=== PATIENT | female | born 1960 | race Hispanic/Latino ===

== ENCOUNTER 2018-09-11 19:57 | Emergency (ER) | payer BC ==
[2018-09-11 20:04] VITALS: RESP 20; O2SAT 99
[2018-09-11] MEDS ORDERED: Morphine 4 MG/ML VIAL ONE (20:16)
[2018-09-11] MEDS ORDERED: Midazolam 2 MG/2 ML VIAL IV ONE (20:59)
[2018-09-11] MEDS ORDERED: Midazolam 2 MG/2 ML VIAL ONE (21:02)
--- NOTE | 2018-09-11 22:45 | ED PDOC ---
Upper Extremity Pain/Injury Time Seen by Provider: 09/11/18 19:58 Chief Complaint (Nursing): Upper Extremity Problem/Injury Chief Complaint (Provider): Upper Extremity Problem/Injury History Per: Patient History/Exam Limitations: no limitations Additional Complaint(s): Charity Page is 57 year old female with a past medical history of anemia, who presents to the emergency department after sustaining an injury to the left wrist. Patient states she fell backwards and landed on her left wrist. She reports to have pain to the wrist with deformity but no other injury. PMD: No provider Past Medical History Reviewed: Historical Data, Nursing Documentation, Vital Signs Vital Signs: Last Vital Signs Temp 97.5 F L 09/11/18 20:01 Pulse 59 L 09/11/18 20:01 Resp 20 09/11/18 20:01 BP 132/72 09/11/18 20:01 Pulse Ox 99 09/11/18 20:01 - Medical History PMH: Anemia Denies: Chronic Kidney Disease - Surgical History Surgical History: No Surg Hx - Family History Family History: States: Unknown Family Hx - Home Medications Home Medications: Ambulatory Orders Medication Instructions Recorded Hydrocodone/Acetaminophen [Vicodin 1 each PO Q8 #15 tablet 09/11/18 Es 7.5-300 mg Tablet] RX: Ibuprofen [Motrin Tab] 600 mg PO Q6 #30 tab 09/11/18 - Allergies Allergies/Adverse Reactions: Allergies Allergy/AdvReac Type Severity Reaction Status Date / Time No Known Allergies Allergy Verified 06/24/15 11:33 Review of Systems ROS Statement: Except As Marked, All Systems Reviewed And Found Negative Musculoskeletal: Positive for: Other (wrist pain) Physical Exam - Reviewed Nursing Documentation Reviewed: Yes Vital Signs Reviewed: Yes - Physical Exam Appears: Positive for: Non-toxic, No Acute Distress Head Exam: Positive for: ATRAUMATIC, NORMOCEPHALIC Skin: Positive for: Normal Color Cardiovascular/Chest: Positive for: Regular Rate, Rhythm. Negative for: Murmur Respiratory: Positive for: Normal Breath Sounds. Negative for: Respiratory Distress Pulses-Radial (L): 2+ Pulses-Radial (R): 2+ Extremity: Positive for: Deformity (obvious deformity of the left distal radius), Other (able to wiggle fingers). Negative for: Tenderness (to elbow, forearm or shoulder (-) abnormaity) - ECG O2 Sat by Pulse Oximetry: 99 (RA) Pulse Ox Interpretation: Normal Medical Decision Making Medical Decision Making: Time: 20:16 A/P: Impression: distal radius fracture; neurovascular is intact Plan: --Morphine 4mg IVP --Versed inj 6mg IV --Left wrist x-ray See procedure note --Dr. Ruiz reviewed images, recommend outpatient followup --Patient placed in sugar tong splint, checked by me --Remained neurovascularly intact --Very well appearing upon discharge Scribe Attestation: Documented by Yogesh Cruz, acting as a scribe for Fam Arthur MD. Provider Scribe Attestation: All medical record entries made by the Scribe were at my direction and personally dictated by me. I have reviewed the chart and agree that the record accurately reflects my personal performance of the history, physical exam, medical decision making, and the department course for this patient. I have also personally directed, reviewed, and agree with the discharge instructions and disposition Procedures - Joint Reduction Conscious Sedation: No Reduction Attempts: 1 Pre-Procedure NV Exam: Yes Post Joint Reduction Film: joint reduced Progress: Joint reduction of L distal radius --Patient placed on monitor, IV, O2 established --Time out done --Versed 6mg IV given --Adequate relaxation achieved --Patient placed in finger binders --Weights applied gently --Traction and reduction x 2 --Successful anatomical alignment post reduction --Post-reduction xrays reveal better alignment Disposition - Clinical Impression Clinical Impression: Fracture of wrist - Patient ED Disposition Is Patient to be Admitted: No - Disposition Referrals: Amanuel Roche MD [Staff Provider] - Disposition: Routine/Home Disposition Time: 23:00 Condition: GOOD Prescriptions: Hydrocodone/Acetaminophen [Vicodin Es 7.5-300 mg Tablet] 1 each PO Q8 #15 tablet RX: Ibuprofen [Motrin Tab] 600 mg PO Q6 #30 tab Instructions: Colles' Fracture (DC), Wrist Fracture (DC), Common Wrist Injuries, Opioids for Short-Term Treatment of Pain, Taking Narcotics Safely Forms: [employer] (Mongolian)
[2018-09-11 23:19] VITALS: BP 124/68; PULSE 68; TEMP 98.2
--- NOTE | 2018-09-12 13:06 | RAD ---
Date of service: 09/11/2018 PROCEDURE: Left Wrist Radiographs. HISTORY: FOOSH COMPARISON: None. FINDINGS: BONES: Comminuted distal radial fracture, dorsal angulation. JOINTS: Normal. No dislocation. SOFT TISSUES: Soft tissue swelling attests to the acuity of the fracture. OTHER FINDINGS: None. IMPRESSION: Comminuted fracture distal left radius.
--- NOTE | 2018-09-12 13:07 | RAD ---
Date of service: 09/11/2018 PROCEDURE: Left Wrist Radiographs. HISTORY: 2 view: post reduction COMPARISON: None. FINDINGS: BONES: Comminuted fracture distal left radius. No apparent intra-articular component. No appreciable dorsal or volar angulation. Evidence of old ulnar styloid fracture. JOINTS: Normal. No dislocation. SOFT TISSUES: Normal. OTHER FINDINGS: None. IMPRESSION: Comminuted distal left radial fracture.
== END 2018-09-11 22:45 | disposition home or self-care (01) ==
LOC: H.ER 19:57
DX: S52.592A Other fractures of lower end of left radius, initial encounter for closed fracture (principal); W19.XXXA Unspecified fall, initial encounter; Y92.89 Other specified places as the place of occurrence of the external cause; D64.9 Anemia, unspecified
CPT/HCPCS: 25660; 29125; 73110; 96374; 99284; J2250; J2270